=== PATIENT | female | born 1975 | race American Indian/Alaskan Native ===

== ENCOUNTER 2016-02-14 12:12 | Emergency (ER) | payer OTHER, MEDICAID ==
[2016-02-14] MEDS ORDERED: TORADOL IM ONE (17:42)
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
[2016-02-14 21:51] VITALS: BP 131/86
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
== END 2016-02-14 19:40 | disposition home or self-care (01) ==
LOC: ED 12:12
DX: R07.89 Other chest pain (principal); M25.511 Pain in right shoulder; V89.2XXA Person injured in unspecified motor-vehicle accident, traffic, initial encounter; Y92.488 Other paved roadways as the place of occurrence of the external cause; Y93.89 Activity, other specified; Y99.8 Other external cause status
CPT/HCPCS: 71020; 96372; 99283; J1885